=== PATIENT | female | born 1940 ===

== ENCOUNTER 2019-01-29 06:15 | Day surgery (SDC) | payer OTHER | END 2019-01-29 11:00 | disposition home or self-care (01) | LOC: AMB-ENDOS 06:15 | DX: D12.2 Benign neoplasm of ascending colon (principal); D12.3 Benign neoplasm of transverse colon; D12.4 Benign neoplasm of descending colon; D12.8 Benign neoplasm of rectum; Z12.11 Encounter for screening for malignant neoplasm of colon ==